=== PATIENT | male | born 1935 | race Caucasian/White ===

== ENCOUNTER 2021-11-24 11:48 | Emergency (ER) | payer MEDICARE, OTHER ==
[~2021-11-24] VITALS: Ht 177.8 cm; Wt 85.7 kg
--- NOTE | 2021-11-24 11:59 | ED Cardiac General ---
History of Present Illness General Stated Complaint: IRREGULAR HEART RATE History of Present Illness Date Seen by Provider: Nov 24, 2021 Time Seen by Provider: 11:54 Initial Comments 86-year-old male presents with rapid heartbeat. Patient sent in by primary care provider after visiting [facility] and was found to have a heart rate in the 150s. Patient has not been a doctor in about 10 years. He is currently not taking any medications outside of aspirin. He presented to the primary care because he felt like he is having some memory decline and his been recently placed on a medication that helped her memory and he wanted to see about that. Patient denies any chest pain, shortness of breath or any other systemic complaints. Patient with no other systemic complaints. pt thinks his heart rate is fast because they where talking about the of a son a year ago and made him upset Allergies and Home Medications Allergies Coded Allergies: No Known Drug Allergies (Unverified , 11/24/21) Patient Home Medication List Home Medication List Reviewed: Yes Review of Systems Review of Systems Constitutional: No chills, No fever, No malaise, No weakness EENTM: No Symptoms Reported Respiratory: No Symptoms Reported Cardiovascular: No Symptoms Reported Gastrointestinal: No Symptoms Reported Genitourinary: No Symptoms Reported Musculoskeletal: no symptoms reported Skin: no symptoms reported Psychiatric/Neurological: See HPI, Other (Concerns with memory) Physical Exam Vital Signs Vital Signs - First Documented 11/24/21 12:00 Temp 36.1 Pulse 146 Resp 17 B/P (MAP) 144/92 (109) Pulse Ox 100 O2 Delivery Room Air Capillary Refill : Height, Weight, BMI Height: '" Weight: lbs. oz. kg; BMI Method: General Appearance: No Apparent Distress, WD/WN HEENT: PERRL/EOMI, Moist Mucous Membranes Neck: Full Range of Motion Respiratory: Lungs Clear, Normal Breath Sounds, No Accessory Muscle Use, No Respiratory Distress Cardiovascular: Tachycardia (Irregular) Gastrointestinal: Non Tender, Soft Extremity: Normal Capillary Refill, Normal Inspection, Normal Range of Motion Neurologic/Psychiatric: Alert, Oriented x3, No Motor/Sensory Deficits, Normal Mood/Affect, steam tunnel feeder II-XII Norm as Tested Skin: Normal Color, Warm/Dry Progress/Results/Core Measures Results/Orders Lab Results Laboratory Tests Test 11/24/21 12:05 Range/Units White Blood Count 8.2 4.3-11.0 10^3/uL Red Blood Count 5.10 4.30-5.52 10^6/uL Hemoglobin 16.4 13.3-17.7 g/dL Hematocrit 47 40-54 % Mean Corpuscular Volume 93 80-99 fL Mean Corpuscular Hemoglobin 32 25-34 pg Mean Corpuscular Hemoglobin Concent 35 32-36 g/dL Red Cell Distribution Width 13.1 10.0-14.5 % Platelet Count 188 130-400 10^3/uL Mean Platelet Volume 10.2 9.0-12.2 fL Immature Granulocyte % (Auto) 0 % Neutrophils (%) (Auto) 66 42-75 % Lymphocytes (%) (Auto) 21 12-44 % Monocytes (%) (Auto) 10 0-12 % Eosinophils (%) (Auto) 2 0-10 % Basophils (%) (Auto) 1 0-10 % Neutrophils # (Auto) 5.4 1.8-7.8 10^3/uL Lymphocytes # (Auto) 1.7 1.0-4.0 10^3/uL Monocytes # (Auto) 0.9 0.0-1.0 10^3/uL Eosinophils # (Auto) 0.1 0.0-0.3 10^3/uL Basophils # (Auto) 0.1 0.0-0.1 10^3/uL Immature Granulocyte # (Auto) 0.0 0.0-0.1 10^3/uL Sodium Level 141 135-145 MMOL/L Potassium Level 3.9 3.6-5.0 MMOL/L Chloride Level 107 98-107 MMOL/L Carbon Dioxide Level 21 21-32 MMOL/L Anion Gap 13 5-14 MMOL/L Blood Urea Nitrogen 25 H 7-18 MG/DL Creatinine 1.21 0.60-1.30 MG/DL Estimat Glomerular Filtration Rate 58 BUN/Creatinine Ratio 21 Glucose Level 122 H 70-105 MG/DL Calcium Level 9.6 8.5-10.1 MG/DL Corrected Calcium 9.8 8.5-10.1 MG/DL Magnesium Level 2.1 1.6-2.4 MG/DL Total Bilirubin 1.2 H 0.1-1.0 MG/DL Aspartate Amino Transf (AST/SGOT) 24 5-34 U/L Alanine Aminotransferase (ALT/SGPT) 13 0-55 U/L Alkaline Phosphatase 66 40-136 U/L Total Protein 6.9 6.4-8.2 GM/DL Albumin 3.8 3.2-4.5 GM/DL My Orders Orders - AB BENOIT DO Cbc With Automated Diff (11/24/21 12:05) Comprehensive Metabolic Panel (11/24/21 12:05) Magnesium (11/24/21 12:05) Thyroid Analyzer (11/24/21 12:05) Chest Pa/Lat (2 View) (11/24/21 12:05) Ns Iv 1000 Ml (Sodium Chloride 0.9%) (11/24/21 12:08) Ekg Tracing (11/24/21 12:15) Diltiazem Injection (Cardizem Injection) (11/24/21 12:30) Ekg Tracing (11/24/21 12:59) Vital Signs/I&O 11/24/21 11/24/21 12:00 12:59 Temp 36.1 Pulse 146 67 Resp 17 B/P (MAP) 144/92 (109) 123/55 Pulse Ox 100 O2 Delivery Room Air Progress Progress Note : Progress Note Patient remained asymptomatic throughout his whole stay patient spontaneously converted back to sinus rhythm with a heart rates around the 70s. Patient's vitals otherwise remained stable with no significant findings on his evaluation. Recommended he follow back up with primary care provider for repeat check and possible cardiology consultation if indicated. Patient stable and discharged Initial ECG Impression Date: Nov 24, 2021 Initial ECG Impression Time: 12:17 Initial ECG Rate: 65 Initial ECG Comparisson: No Previous ECG Available Comment narrow wave tachycardia, hr 145, fasicular block, non specific st, t wave changes EKG : EKG Time: 13:00 Rhythm: Normal Sinus Intervals: Normal ECG Comparisson: Changed Comment sinus tachycardia with arrythmia, left anterior fasicular block, non specific t wave changes, Diagnostic Imaging Diagonstic Imaging: Xray Plain Films/CT/US/NM/MRI: chest Comments Date of Exam:11/24/21 CHEST PA/LAT (2 VIEW) INDICATION: Tachycardia. COMPARISON: None available. TECHNIQUE: Frontal and lateral radiographs of the chest dated November 24, 2021. FINDINGS: The cardiac silhouette is within normal limits in size. No significant pulmonary vascular congestion. The lungs are mildly hyperinflated. The lungs however appear clear of focal pulmonary opacity. No pleural effusion. No pneumothorax. Scattered osseous degenerative changes without acute osseous abnormality. IMPRESSION: Mild background pulmonary hyperinflation without superimposed acute cardiopulmonary abnormality. Reviewed: Reviewed by Me, Reviewed/Discussed Departure Impression Primary Impression: Paroxysmal tachycardia, unspecified Disposition: 01 HOME, SELF-CARE Condition: Stable Departure-Patient Inst. Patient Instructions: Paroxysmal Supraventricular Tachycardia (DC), Tachycardia Add. Discharge Instructions: Please follow-up with your primary care provider to continue establish care and further evaluation on an outpatient basis AB BENOIT DO Nov 24, 2021 11:59
[2021-11-24] MEDS ORDERED: NS IV 1000 ML 1,000 ML IV STA (12:08)
[2021-11-24 12:20] LABS: BASOPHILS # (AUTO) 0.1 10^3/uL (0.0-0.1); BASOPHILS % (AUTO) 1 % (0-10); EOSINOPHILS # (AUTO) 0.1 10^3/uL (0.0-0.3); EOSINOPHILS % (AUTO) 2 % (0-10); HEMATOCRIT 47 % (40-54); HEMOGLOBIN 16.4 g/dL (13.3-17.7); LYMPHOCYTES # (AUTO) 1.7 10^3/uL (1.0-4.0); LYMPHOCYTES % (AUTO) 21 % (12-44); MEAN CORPUSCULAR HEMOGLOBIN 32 pg (25-34); MEAN CORPUSCULAR HGB CONC 35 g/dL (32-36); MEAN CORPUSCULAR VOLUME 93 fL (80-99); MEAN PLATELET VOLUME 10.2 fL (9.0-12.2); MONOCYTES # (AUTO) 0.9 10^3/uL (0.0-1.0); MONOCYTES % (AUTO) 10 % (0-12); NEUTROPHILS # (AUTO) 5.4 10^3/uL (1.8-7.8); NEUTROPHILS % (AUTO) 66 % (42-75); PLATELET COUNT 188 10^3/uL (130-400); WHITE BLOOD COUNT 8.2 10^3/uL (4.3-11.0)
--- NOTE | 2021-11-24 12:26 | Diagnostic Imaging Report ---
INDICATION: Tachycardia. COMPARISON: None available. TECHNIQUE: Frontal and lateral radiographs of the chest dated November 24, 2021. FINDINGS: The cardiac silhouette is within normal limits in size. No significant pulmonary vascular congestion. The lungs are mildly hyperinflated. The lungs however appear clear of focal pulmonary opacity. No pleural effusion. No pneumothorax. Scattered osseous degenerative changes without acute osseous abnormality. IMPRESSION: Mild background pulmonary hyperinflation without superimposed acute cardiopulmonary abnormality. Dictated by: Dictated on workstation # [id number]
[2021-11-24 12:42] LABS: ALBUMIN 3.8 GM/DL (3.2-4.5); BILIRUBIN,TOTAL 1.2 MG/DL (0.1-1.0); CALCIUM 9.6 MG/DL (8.5-10.1); CREATININE SERUM 1.21 MG/DL (0.60-1.30); MAGNESIUM 2.1 MG/DL (1.6-2.4); POTASSIUM 3.9 MMOL/L (3.6-5.0); TOTAL PROTEIN 6.9 GM/DL (6.4-8.2)
[2021-11-24 13:37] VITALS: BP 105/62
[2021-11-24 15:08] LABS: TSH (THYROID ANALYZER) 3.07 UIU/ML (0.35-4.94)
== END 2021-11-24 13:35 | disposition home or self-care (01) ==
LOC: ER FS 11:52
DX: I47.9 Paroxysmal tachycardia, unspecified (principal)
CPT/HCPCS: 36415; 71046; 80053; 83735; 84443; 85025; 93005

== ENCOUNTER → 2021-12-03 | Outpatient (CLI) | payer MEDICARE, OTHER | LOC: CARDFS 08:56 | PROVIDERS: ATTEND Registered Nurse Emergency | DX: I35.0 Nonrheumatic aortic (valve) stenosis (principal); I47.1 Supraventricular tachycardia | CPT/HCPCS: 93306 ==

== ENCOUNTER 2022-04-30 21:43 | Emergency (ER) | payer MEDICARE, OTHER ==
[~2022-04-30] VITALS: Ht 177.8 cm; Wt 79.0 kg
[2022-04-30] MEDS ORDERED: LACTATED RINGERS 1,000 ML IV ONE (21:56)
[2022-04-30] MEDS ORDERED: ENOXAPARIN 80 MG/0.8 ML (LOVENOX) SYR SC ONE (22:00)
[2022-04-30] MEDS ORDERED: dilTIAZem DRIP PRE-MIX 0 ML IV ONE (22:02)
[2022-04-30 22:12] LABS: BASOPHILS # (AUTO) 0.1 10^3/uL (0.0-0.1); BASOPHILS % (AUTO) 1 % (0-10); EOSINOPHILS % (AUTO) 0 % (0-10); HEMATOCRIT 45 % (40-54); HEMOGLOBIN 15.3 g/dL (13.3-17.7); LYMPHOCYTES # (AUTO) 0.8 10^3/uL (1.0-4.0); LYMPHOCYTES % (AUTO) 7 % (12-44); MEAN CORPUSCULAR HEMOGLOBIN 32 pg (25-34); MEAN CORPUSCULAR HGB CONC 34 g/dL (32-36); MEAN CORPUSCULAR VOLUME 93 fL (80-99); MEAN PLATELET VOLUME 10.2 fL (9.0-12.2); MONOCYTES # (AUTO) 0.5 10^3/uL (0.0-1.0); MONOCYTES % (AUTO) 4 % (0-12); NEUTROPHILS # (AUTO) 9.6 10^3/uL (1.8-7.8); NEUTROPHILS % (AUTO) 87 % (42-75); PLATELET COUNT 155 10^3/uL (130-400)
[2022-04-30] MEDS ORDERED: ONDANSETRON 4 MG/2 ML (SDV) Z0FRAN ONE (22:16)
[2022-04-30] MEDS ORDERED: TENECTEPLASE 50 MG VIAL IV ONE ×2 (22:22→22:30)
[2022-04-30 22:30] LABS: CREATININE SERUM 1.01 MG/DL (0.60-1.30); POTASSIUM 4.1 MMOL/L (3.6-5.0); PROTHROMBIN TIME PATIENT 13.2 SEC (12.2-14.7)
[2022-04-30 22:31] LABS: ALBUMIN 3.8 GM/DL (3.2-4.5); BILIRUBIN,TOTAL 1.6 MG/DL (0.1-1.0); CALCIUM 9.4 MG/DL (8.5-10.1); MAGNESIUM 2.1 MG/DL (1.6-2.4); TOTAL PROTEIN 6.8 GM/DL (6.4-8.2)
--- NOTE | 2022-04-30 22:31 | ED Cardiac General ---
History of Present Illness General Stated Complaint: CHEST/ABD PAIN Source: patient, family, EMS Exam Limitations: no limitations History of Present Illness Date Seen by Provider: Apr 30, 2022 Time Seen by Provider: 22:26 Initial Comments 86-year-old male with no pertinent past medical history coming in via EMS due to chest pain and rapid heart rate. Started feeling pain around 2:30 PM, question multiple times if he should come in. On EMS arrival his heart rate was in the 140s blood pressure 110/80. Patient nauseous at that time. He states this is never happened before. Has not been sick recently, no fever, diarrhea, focal weakness or numbness, or any other concerns. He did take a full dose aspirin earlier today. Allergies and Home Medications Allergies Coded Allergies: No Known Drug Allergies (Unverified , 11/24/21) Patient Home Medication List Home Medication List Reviewed: Yes Review of Systems Review of Systems Constitutional: No fever EENTM: No Symptoms Reported Respiratory: No Symptoms Reported Cardiovascular: See HPI Gastrointestinal: No Symptoms Reported Genitourinary: No Symptoms Reported Musculoskeletal: no symptoms reported Skin: no symptoms reported Psychiatric/Neurological: No Symptoms Reported Past Minkcai-Zpljki-Yfzpfz Hx Patient Social History Tobacco Use?: No Substance use?: No Alcohol Use?: No Physical Exam Vital Signs Vital Signs - First Documented 04/30/22 21:45 Temp 36.2 Pulse 138 Resp 22 B/P (MAP) 87/53 (64) Pulse Ox 94 O2 Delivery Nasal Cannula O2 Flow Rate 2.00 Capillary Refill : Height, Weight, BMI Height: '" Weight: lbs. oz. kg; 27.00 BMI Method: General Appearance: Anxious, Moderate Distress HEENT: PERRL/EOMI, Normal ENT Inspection, Pharynx Normal Neck: Full Range of Motion, Normal Inspection, Non Tender, Supple Respiratory: Lungs Clear, Normal Breath Sounds, No Accessory Muscle Use, No Respiratory Distress Cardiovascular: No Edema, Normal Peripheral Pulses, Tachycardia Gastrointestinal: Normal Bowel Sounds, Non Tender, Soft; No Distended, No G uarding Extremity: Normal Capillary Refill, Normal Inspection, Normal Range of Motion, Non Tender, No Calf Tenderness, No Pedal Edema Neurologic/Psychiatric: Alert, Oriented x3, No Motor/Sensory Deficits, Normal Mood/Affect Skin: Normal Color, Warm/Dry Progress/Results/Core Measures Results/Orders Lab Results Laboratory Tests Test 04/30/22 21:51 Range/Units White Blood Count 11.0 4.3-11.0 10^3/uL Red Blood Count 4.79 4.30-5.52 10^6/uL Hemoglobin 15.3 13.3-17.7 g/dL Hematocrit 45 40-54 % Mean Corpuscular Volume 93 80-99 fL Mean Corpuscular Hemoglobin 32 25-34 pg Mean Corpuscular Hemoglobin Concent 34 32-36 g/dL Red Cell Distribution Width 13.2 10.0-14.5 % Platelet Count 155 130-400 10^3/uL Mean Platelet Volume 10.2 9.0-12.2 fL Immature Granulocyte % (Auto) 1 % Neutrophils (%) (Auto) 87 H 42-75 % Lymphocytes (%) (Auto) 7 L 12-44 % Monocytes (%) (Auto) 4 0-12 % Eosinophils (%) (Auto) 0 0-10 % Basophils (%) (Auto) 1 0-10 % Neutrophils # (Auto) 9.6 H 1.8-7.8 10^3/uL Lymphocytes # (Auto) 0.8 L 1.0-4.0 10^3/uL Monocytes # (Auto) 0.5 0.0-1.0 10^3/uL Eosinophils # (Auto) 0.0 0.0-0.3 10^3/uL Basophils # (Auto) 0.1 0.0-0.1 10^3/uL Immature Granulocyte # (Auto) 0.1 0.0-0.1 10^3/uL Neutrophils % (Manual) 82 % Lymphocytes % (Manual) 11 % Monocytes % (Manual) 6 % Eosinophils % (Manual) 1 % Prothrombin Time 13.2 12.2-14.7 SEC INR Comment 1.0 0.8-1.4 Activated Partial Thromboplast Time 22 L 24-35 SEC D-Dimer 1.47 H 0.00-0.49 UG/ML Sodium Level 137 135-145 MMOL/L Potassium Level 4.1 3.6-5.0 MMOL/L Chloride Level 102 98-107 MMOL/L Carbon Dioxide Level 18 L 21-32 MMOL/L Anion Gap 17 H 5-14 MMOL/L Blood Urea Nitrogen 21 H 7-18 MG/DL Creatinine 1.01 0.60-1.30 MG/DL Estimat Glomerular Filtration Rate 72 BUN/Creatinine Ratio 21 Glucose Level 211 H 70-105 MG/DL Calcium Level 9.4 8.5-10.1 MG/DL Corrected Calcium 9.6 8.5-10.1 MG/DL Magnesium Level 2.1 1.6-2.4 MG/DL Total Bilirubin 1.6 H 0.1-1.0 MG/DL Aspartate Amino Transf (AST/SGOT) 62 H 5-34 U/L Alanine Aminotransferase (ALT/SGPT) 29 0-55 U/L Alkaline Phosphatase 75 40-136 U/L Troponin I 1.52 *H <0.30 NG/ML Pro-B-Type Natriuretic Peptide 1831.0 H <450.0 PG/ML Total Protein 6.8 6.4-8.2 GM/DL Albumin 3.8 3.2-4.5 GM/DL Lipase 15 8-78 U/L My Orders Orders - WALLACE ALCALA MD Lactated Ringers (Lr 1000 Ml Iv Solution (04/30/22 21:56) Cbc With Automated Diff (04/30/22 21:59) Magnesium (04/30/22 21:59) Chest 1 View Ap/Pa Only (04/30/22 21:59) Ekg Tracing (04/30/22 21:59) Comprehensive Metabolic Panel (04/30/22 21:59) Protime With Inr (04/30/22 21:59) Partial Thromboplastin Time (04/30/22 21:59) O2 (04/30/22 21:59) Monitor-Rhythm Ecg Trace Only (04/30/22 21:59) Ed Iv/Invasive Line Start (04/30/22 21:59) Lipase (04/30/22 21:59) Fibrin Degradation Products (04/30/22 21:59) Troponin I Fs (04/30/22 21:59) Probnp Fs (04/30/22 21:59) Ns (Ivpb) (Sodium C... W/Diltiazem Iv Fo (04/30/22 22:00) Diltiazem Injection (Cardizem Injection) (04/30/22 22:00) Enoxaparin Injection (Lovenox Injection) (04/30/22 22:00) Diltiazem Drip Pre-Mix (Cardizem Drip Pr (04/30/22 22:02) Ondansetron Injection (Zofran Injectio (04/30/22 22:16) Tenecteplase (Tnkase) (04/30/22 22:30) Post Thrombolytic Adminstratio (04/30/22 22:19) Tenecteplase (Tnkase) (04/30/22 22:22) Norepinephrine 8 Mg/250 Ml (Norepinephri (04/30/22 22:37) Norepinephrine 8 Mg/250 Ml (Norepinephri (04/30/22 22:42) Manual Differential (04/30/22 21:51) Medications Given in ED Current Medications Medications Dose Ordered Sig/Kurt Route Start Time Stop Time Status Last Admin Dose Admin Diltiazem HCl 20 mg ONCE ONCE IVP 04/30/22 22:00 04/30/22 22:01 DC 04/30/22 22:04 20 MG Lactated Ringer's 1,000 ml @ ud STK-MED ONCE IV 04/30/22 21:56 04/30/22 21:58 DC 04/30/22 21:51 999 MLS/HR Ondansetron HCl 4 mg STK-MED ONCE .ROUTE 04/30/22 22:16 04/30/22 22:19 DC 04/30/22 22:17 4 MG Tenecteplase 45 mg ONCE ONCE IV 04/30/22 22:30 04/30/22 22:31 DC 04/30/22 22:31 45 MG Vital Signs/I&O 04/30/22 04/30/22 04/30/22 04/30/22 21:45 22:04 22:31 22:36 Temp 36.2 Pulse 138 138 84 77 Resp 22 B/P (MAP) 87/53 (64) 111/86 73/52 68/53 Pulse Ox 94 O2 Delivery Nasal Cannula O2 Flow Rate 2.00 Progress Progress Note : Progress Note 86-year-old male with above history coming in due to chest pain. On the monitor the patient looked like a flutter with RVR with a rate around 140. Initial blood pressure 80/50 so he was placed on the pads to cardiovert. Repeat blood pressure 110/70 and maintained that pressure. At that point an IV was placed and he was given a bolus of IV fluids. Continue to look like A-fib or atypical a flutter on EKG with no STEMI. Given the blood pressure had improved, gave him a diltiazem bolus and we were going to follow with a drip. Immediately after the bolus of diltiazem his heart rate slowed down to the 80s. Repeat EKG showing a septal STEMI. Cardiology is on diversion for our facility so I contacted [facility] who accepted him. I discussed the case with the templer head, and given the delay to transport, he would like us to give tenecteplase. I then verbally consented the patient with his present to give him lytics. The patient is just at 80 kg which would be 45 mg of tenecteplase given as a bolus. We then contacted helicopter for transport which should be here roughly 35 minutes after the time of contact. I also discussed the case with the internal medicine physician who will be excepting him, Dr. Capone. Shortly after getting the tenecteplase he became hypotensive lowest 60/40. Continued to give fluids, but his pressure continued to be low so I started an 18-gauge IV with ultrasound guidance in a proximal vein. Then started norepinephrine drip. Blood pressure improved afterwards. At this point the helicopter arrived and they assumed care on his way to [facility]. Initial ECG Impression Date: Apr 30, 2022 Initial ECG Impression Time: 21:54 Initial ECG Rate: 136 Initial ECG Rhythm: A Fib/Flutter Comment A-fib with RVR, wide QRS with a right bundle branch block and left anterior fascicular block, no STEMI EKG : EKG Time: 22:08 Rate: 80 Rhythm: Normal Sinus Comment Septal STEMI with ST elevation in V1 and V2 with reciprocal depressions laterally Diagnostic Imaging Diagonstic Imaging: Xray (chest) Comments No obvious pneumonia or pneumothorax, there is some perihilar vascular congestion Critical Care Note Critical Care Start Time: 20:11 Stop Time: 23:10 Total Time (minutes) 59 Progress Patient was having a STEMI and was hypotensive. He required frequent reassessments, vasoactive medications through his IV, and conversations with other physicians. Departure Impression Primary Impression: STEMI (ST elevation myocardial infarction) Qualified Codes: I21.29 - ST elevation (STEMI) myocardial infarction involving other sites Disposition: SHT-TRM HOSP Condition: Critical Admissions Decision to Admit/Date: Apr 30, 2022 Time/Decision to Admit Time: 22:15 Transfer Transfer Reason: Exceeds level of care (Our facility is on cardiology diversion) Transfer Facility: [facility] Method of Transfer: Air Departure-Patient Inst. Referrals: LISSETT TINOCO APRN (PCP) Primary Care Physician GIANCARLO AVERY MD (Family) Primary Care Physician WALLACE ALCALA MD Apr 30, 2022 22:31
[2022-04-30] MEDS ORDERED: NOREPINEPHRINE 8 MG/250 ML 250 ML IV ONE (22:37)
[2022-04-30] MEDS ORDERED: NOREPINEPHRINE 8 MG/250 ML 250 ML IV STA (22:42)
[2022-04-30 22:51] LABS: EOSINOPHILS % (MANUAL) 1 %; LYMPHOCYTES % (MANUAL) 11 %; MONOCYTES % (MANUAL) 6 %; NEUTROPHILS % (MANUAL) 82 %
[2022-04-30 23:15] VITALS: BP 89/60
--- NOTE | 2022-05-01 05:34 | Diagnostic Imaging Report ---
INDICATION: Shortness of breath COMPARISONS: 11/24/2021 FINDINGS: Single view of the chest shows the cardiac contour to be normal. There is a moderate central venous congestion. Some perihilar and right basilar infiltrates are seen. Film is slightly underpenetrated. Soft tissues and bony thorax are unremarkable. IMPRESSION: 1. Developing congestive heart failure 2. Few scattered alveolar infiltrates are seen, more prominent in the right lower lobe. Dictated by: Dictated on workstation # [id number]
== END 2022-04-30 23:16 | disposition short-term general hospital (02) ==
LOC: EDUNIT# 21:43 → ER FS 21:48
DX: I21.29 ST elevation (STEMI) myocardial infarction involving other sites (principal); I45.2 Bifascicular block; R03.1 Nonspecific low blood-pressure reading
CPT/HCPCS: 36415; 71045; 80053; 83690; 83735; 83880; 84484; 85007; 85025; 85027; 85379; 85610; 85730; 92977; 93041; 99291